=== PATIENT | female | born 1935 | race Caucasian/White ===

== ENCOUNTER 2020-01-14 23:26 | Inpatient (IN) | payer MEDICARE, OTHER ==
[~2020-01-14] VITALS: Ht 144.8 cm; Wt 57.6 kg
--- NOTE | 2020-01-14 23:42 | NUR ---
PT BIBRA 102 AND THE DTR FOR EVALUATION OF R KNEE PAIN AND SWELLING S/P GLF DENIED HITTING HER HEAD. - KO. PT AAOX3, RR EVEN AND UNLABORED W/ NAD NOTED. PT CONNECTED TO THE SALESPERSON FLYING SQUAD AND POX. LIDOCAINE PATCH NOTED. ADMINISTERED BY DTR @2230
[2020-01-15] MEDS ORDERED: ACETAMINOPHEN ES 500 MG TABLET ONE (00:24)
[2020-01-15] MEDS ORDERED: ACETAMINOPHEN ES 500 MG TABLET PO ONE (00:30)
--- NOTE | 2020-01-15 02:19 | NUR ---
M/S 309-2
--- NOTE | 2020-01-15 02:29 | NUR ---
ER MD SPOKE TO DR. EVERETT REGARDING PT ADMISSION.
[2020-01-15] MEDS ORDERED: MAG HYDROX/AL HYDROX/SIMETH 30 ML UDC PO PRN (02:30)
[2020-01-15] MEDS ORDERED: MAGNESIUM HYDROXIDE 30 ML UDC PO PRN (02:30)
[2020-01-15] MEDS ORDERED: ZOLPIDEM TARTRATE 5 MG TABLET PO PRN (02:30)
[2020-01-15] MEDS ORDERED: Z GUARD REMEDY 2 OZ OINT TP PRN (02:30)
[2020-01-15] MEDS ORDERED: ONDANSETRON HCL/PF 4 MG/2 ML VIAL IVP PRN (02:30)
[2020-01-15 03:12] LABS: BASOPHILS # (AUTO) 0.1 /CMM (0.0-0.2); BASOPHILS % (AUTO) 0.8 % (0.0-2.0); EOSINOPHILS % (AUTO) 1.9 % (0.0-6.0); HEMATOCRIT 38 % (33-45); HEMOGLOBIN 12.1 g/dL (11.5-14.8); LYMPHOCYTES # (AUTO) 0.5 /CMM (0.8-4.8); LYMPHOCYTES % (AUTO) 4.7 % (20.0-44.0); MEAN CORPUSCULAR HGB CONC 32 g/dl (31.0-36.0); MEAN CORPUSCULAR VOLUME 94 fL (82-100); MONOCYTES # (AUTO) 0.5 /CMM (0.1-1.30); MONOCYTES % (AUTO) 4.8 % (2.0-12.0); NEUTROPHILS # (AUTO) 8.5 /CMM (1.8-8.9); NEUTROPHILS % (AUTO) 87.8 % (43.0-81.0); PLATELET COUNT (AUTO) 204 /CMM (150-450); RED BLOOD CELL COUNT(AUTO) 4.01 MIL/uL (4.0-5.2); WHITE BLOOD COUNT (AUTO) 9.7 K/uL (4.3-11.0)
[2020-01-15] MEDS ORDERED: INSU100V42 (03:21)
[2020-01-15] MEDS ORDERED: POLY17PO4 PO (03:21)
[2020-01-15] MEDS ORDERED: ERGO1POW10 MC (03:21)
[2020-01-15] MEDS ORDERED: PROC-11 PO (03:22)
[2020-01-15 03:23] LABS: CALCIUM, SERUM 8.6 mg/dL (8.5-10.1); CARBON DIOXIDE 36 mmol/L (21-32); CHLORIDE 96 mmol/L (98-107); CREATININE 3.7 mg/dL (0.6-1.3); GLUCOSE 209 mg/dL (74-106); POTASSIUM 3.6 mmol/L (3.5-5.1); SODIUM SERUM 137 mmol/L (136-145); UREA NITROGEN, BLOOD 28 mg/dL (7-18)
[2020-01-15] MEDS ORDERED: AMIO200T4 PO (03:23)
[2020-01-15 03:28] LABS: ALANINE AMINOTRANSFERASE 30 U/L (12-78); ALKALINE PHOSPHATASE 248 U/L (46-116); ASPARTATE AMINOTRANSFERASE 27 U/L (15-37); BILIRUBIN,DIRECT 0.2 mg/dL (0.0-0.2); BILIRUBIN,TOTAL 0.5 mg/dL (0.2-1.0); TOTAL PROTEIN, SERUM 6.9 g/dL (6.4-8.2)
[2020-01-15] MEDS ORDERED: ATOR80TA PO (03:29)
[2020-01-15] MEDS ORDERED: AMLO2.5T4 PO (03:29)
[2020-01-15] MEDS ORDERED: FOLI0.8T2 PO (03:29)
[2020-01-15] MEDS ORDERED: APIX2.5T PO (03:29)
[2020-01-15] MEDS ORDERED: INSU300I SQ (03:31)
--- NOTE | 2020-01-15 03:34 | NUR ---
REPORT GIVEN TO BETHEL JOHNSON
--- NOTE | 2020-01-15 03:43 | NUR ---
PT TRANSFERRED TO [facility]-2 IN STABLE CONDITION
--- NOTE | 2020-01-15 04:27 | NUR ---
RN ADMITTING NOTES RECEIVED REPORT FROM [employer] ATTENDANTBETHEL LAWRENCE. Pt ARRIVED TO THE FLOOR VIA ER DAVID, WAS TRANSFERRED TO ROOM BED 309-2 BY ER STAFF, WAS TRANSFERRED TO BED SAFELY. Pt IS A/OX2-3, VERY FORGETFUL AND POOR HISTORIAN. PER REPORT DAUGHTER CAME WITH Pt TO THE ER, BUT DID NOT COME UP TO THE FLOOR WITH DAUGHTER WHEN Pt WAS BEING ADMITTED TO HOSPITAL. Pt IS VERBAL AND ABLE TO MAKE NEEDS KNOWN, BUT IS HARD OF HEARING ON THE BOTH EARS. PER Pt STATEMENT LEFT EAR IS BETTER BUT MUST SPEAK LOUD AND CLOSE FOR Pt TO HEAR WELL. IV ACCESS ON R HAND #22G, SL. SKIN IS INTACT. NO S/S OF ACUTE DISTRESS OR SOB NOTED. SAFETY MEASURES IN PLACE. BED LOW, LOCKED, HOB ELEVATED, SIDE RAILS UP, CALL LIGHT AND BEDSIDE TABLE WITHIN REACH. WILL CONTINUE TO MONITOR Pt's CONDITION AND SAFETY THROUGHOUT THE NIGHT.
[2020-01-15 04:33] VITALS: BP 154/63
[2020-01-15] MEDS: HYDROCODONE/APAP 5/325MG 1 EACH TABLET PO PRN ×2 (04:45→11:54)
[2020-01-15] MEDS ORDERED: DEXTROSE 50%-WATER 50 ML DISP.SYRIN IV PRN (05:00)
[2020-01-15] MEDS: BLOOD SUGAR DIAGNOSTIC 1 EACH STRIP IN SCH ×5 (07:04→21:30)
[2020-01-15] MEDS ORDERED: INSULIN LISPRO/ASPART 100 UNIT/ML CARTRIDGE SQ SCH (07:30)
[2020-01-15] MEDS ORDERED: POLYETHYLENE GLYCOL 3350 17 GM POWD.PACK PO PRN (07:30)
--- NOTE | 2020-01-15 07:30 | NUR ---
RECEIVED PT. THIS AM ALERT AND ORIENTED X2.PARA EDUCATOR DAYRON DEVLIN.
[2020-01-15 08:00] VITALS: BP 152/57
--- NOTE | 2020-01-15 08:28 | NUR ---
RN CLOSING NOTES NO SIGNIFICANT CHANGES IN Pt's CONDITION. Pt IS RESTING COMFORTABLY IN BED. NO S/S OF ACUTE DISTRESS OR SOB NOTED. ALL NEEDS MET AND ATTENDED TO. SAFETY MEASURES IN PLACE. ENDORSED TO DAYSHIFT RN FOR Pt's GOPAL.
[2020-01-15] MEDS: PROCHLORPERAZINE MALEATE 10 MG TABLET PO SCH (08:57)
[2020-01-15] MEDS: AMIODARONE HCL 200 MG TABLET PO SCH ×2 (10:49→18:17)
[2020-01-15] MEDS: VIT B CMPLX 3/FA/VIT C/BIOTIN 1 TAB TABLET PO SCH (10:49)
[2020-01-15] MEDS: AMLODIPINE BESYLATE 2.5 MG TABLET PO SCH (10:50)
[2020-01-15] MEDS: APIXABAN 2.5 MG TABLET PO SCH ×2 (12:53→18:18)
[2020-01-15 16:00] VITALS: BP 152/60
[2020-01-15] MEDS: ACETAMINOPHEN 325 MG TABLET PO PRN ×2 (17:00→20:54)
--- NOTE | 2020-01-15 18:00 | NUR ---
MED. X2 FOR PAIN RT. LEG,UP WITH PHYSICAL TX. FREQ. CALLING NURSED AND FORGETFUL.RELOCATED TO RM. 310-1.
[2020-01-15 20:00] VITALS: BP 139/62
[2020-01-15 20:35] VITALS: BP 134/62
[2020-01-15] MEDS: ATORVASTATIN 40 MG TABLET PO SCH (21:32)
[2020-01-15] MEDS: INSULIN GLARGINE, 100 UNIT/ML CARTRIDGE SQ SCH (21:39)
--- NOTE | 2020-01-15 21:56 | NUR ---
Recieved patient in the bed. She has a immobilzor on and the legs is up on 1 pillow, PPP and the foot is warm. She is [place] and will repeat questions frequently. She swallows water w/o problem aspiration precautions. Blood suagr was 217, I called Ivana the daughter and told her, she stated give NO Insulin and please check the blood sugar at 3AM.
[2020-01-16] MEDS: ACETAMINOPHEN 325 MG TABLET PO PRN ×2 (02:35→06:23)
--- NOTE | 2020-01-16 05:18 | NUR ---
ENDING NOTES: awake thru the night, c/o her right leg hurts. Medicated with tylenol X2 for the pain and not effective. She yells out for her daughters, explained to her it was night, she states"okay" but forgets right away. Incontinent urine. Blood sugar last night at HS was 217, Daughter Ivana has a note on the wall above the bed NO INSULIN AT NIGHT, I called the daughter and spoke to Ivana told her the sugar and stated she should have the long acting insulin at least, she stated she didn't want her Mom to have any insulin because she drops low. She also commented not to give her MOM any [place] thru the night to give her 1 when PT starts to work with her. Her Mom has on a immobilizer right legs elevated 1 pillow PPP and foot warm
[2020-01-16] MEDS: INSULIN REGULAR, HUMAN 100 UNIT/ML 3 ML VIAL SQ PRN ×3 (06:28→17:39)
[2020-01-16] MEDS: INSULIN GLARGINE, 100 UNIT/ML CARTRIDGE SQ SCH ×2 (06:39→21:58)
--- NOTE | 2020-01-16 07:15 | NUR ---
MS RN NOTES PATIENT IN BED ALERT ORIENTED X 2. NO ACUTE DISTRESS NOTED, BREATHING UNLABORED. NO SOB NOTED. IV ACCESS PATENT AND INTACT, NO REDNESS OR SWELLING NOTED. SAFETY MEASURES IN PLACE. CALL LIGHT WITHIN REACH. WILL CONTINUE TO MONITOR ACCORDINGLY.
[2020-01-16 07:18] LABS: BASOPHILS # (AUTO) 0.1 /CMM (0.0-0.2); BASOPHILS % (AUTO) 1.5 % (0.0-2.0); EOSINOPHILS % (AUTO) 0.6 % (0.0-6.0); HEMATOCRIT 34 % (33-45); HEMOGLOBIN 11.1 g/dL (11.5-14.8); LYMPHOCYTES # (AUTO) 0.4 /CMM (0.8-4.8); LYMPHOCYTES % (AUTO) 5.3 % (20.0-44.0); MEAN CORPUSCULAR HGB CONC 32 g/dl (31.0-36.0); MEAN CORPUSCULAR VOLUME 95 fL (82-100); MONOCYTES # (AUTO) 0.4 /CMM (0.1-1.30); MONOCYTES % (AUTO) 6.2 % (2.0-12.0); NEUTROPHILS # (AUTO) 6.1 /CMM (1.8-8.9); NEUTROPHILS % (AUTO) 86.4 % (43.0-81.0); PLATELET COUNT (AUTO) 168 /CMM (150-450); RED BLOOD CELL COUNT(AUTO) 3.62 MIL/uL (4.0-5.2)
[2020-01-16 07:50] LABS: CALCIUM, SERUM 8.8 mg/dL (8.5-10.1); CARBON DIOXIDE 28 mmol/L (21-32); CHLORIDE 94 mmol/L (98-107); CREATININE 4.9 mg/dL (0.6-1.3); GLUCOSE 304 mg/dL (74-106); MAGNESIUM 2.1 mg/dL (1.8-2.4); POTASSIUM 4.5 mmol/L (3.5-5.1); SODIUM SERUM 133 mmol/L (136-145); UREA NITROGEN, BLOOD 40 mg/dL (7-18)
[2020-01-16 07:57] LABS: CHOLESTEROL 143 mg/dL (<200); HDL CHOLESTEROL 67 mg/dL (40-60); LDL 56 mg/dL (0-99); THYROID STIMULATING HORMONE 7.826 uIU/mL (0.358-3.74); TRIGLYCERIDES 97 mg/dL (30-150)
[2020-01-16 08:00] VITALS: BP 154/88
[2020-01-16] MEDS: AMIODARONE HCL 200 MG TABLET PO SCH ×2 (09:21→17:00)
[2020-01-16] MEDS: LEVOTHYROXINE SODIUM 25 MCG TABLET PO SCH (09:21)
[2020-01-16] MEDS: VIT B CMPLX 3/FA/VIT C/BIOTIN 1 TAB TABLET PO SCH (09:22)
[2020-01-16] MEDS: AMLODIPINE BESYLATE 2.5 MG TABLET PO SCH (09:22)
[2020-01-16] MEDS: PROCHLORPERAZINE MALEATE 10 MG TABLET PO SCH (09:22)
[2020-01-16] MEDS: APIXABAN 2.5 MG TABLET PO SCH ×2 (09:23→18:26)
[2020-01-16] MEDS: BLOOD SUGAR DIAGNOSTIC 1 EACH STRIP IN SCH ×3 (12:06→21:58)
[2020-01-16 16:00] VITALS: BP 162/90
--- NOTE | 2020-01-16 17:00 | NUR ---
MS RN NOTES PATIENT ON DIALYSIS HELD MEDICATION.
--- NOTE | 2020-01-16 18:10 | NUR ---
MS RN NOTES PATIENT HAD DIALYSIS, VITAL SIGNS STABLE, 500ML OUT.
--- NOTE | 2020-01-16 18:20 | NUR ---
MS RN NOTES ELIQUIS GIVEN AFTER DIALYSIS
--- NOTE | 2020-01-16 18:40 | NUR ---
MS RN NOTES PATIENT IN BED ALERT ORIENTED X 2. NO ACUTE DISTRESS NOTED, BREATHING UNLABORED. NO SOB NOTED. IV ACCESS PATENT AND INTACT, NO REDNESS OR SWELLING NOTED.NEEDS ATTENDED AND ANTICIPATED. SAFETY MEASURES IN PLACE. CALL LIGHT WITHIN REACH. WILL ENDORSE TO NIGHT NURSE FOR CONTINUITY OF CARE.
--- NOTE | 2020-01-16 19:00 | NUR ---
MS RN NOTE RECEIVED PT IN STABLE CONDITION A/O X2, NOTED IN BED. NO SIGNS OF SOB OR DISTRESS, NO C/O PAIN OR N/V. IV IN R HAND #[address] S/L. ALL CURRENT NEEDS ATTENDED TO. BED LOW, LOCKED, UPPER RAILS UP, AND CALL LIGHT WITHIN REACH. WILL CONT. TO MONITOR.
[2020-01-16 20:00] VITALS: BP 154/110
[2020-01-16] MEDS: ATORVASTATIN 40 MG TABLET PO SCH (21:29)
--- NOTE | 2020-01-16 21:58 | NUR ---
MS RN NOTE PT NOTED WITH BLOOD SUGAR OF 221, PT DAUGHTER EFFIE CALLED AND NOTIFIED. DAUGHTER REFUSING REGULAR INSULIN COVERAGE, AND PM DOSE OF LANTUS 10 UNIT. STATING THAT PT SUGAR ALWAYS DROPS. RISKS AND BENEFITS MADE AWARE. WILL CONT. TO MONITOR.
--- NOTE | 2020-01-17 02:28 | NUR ---
MS RN NOTE BLOOD SUGAR CHECKED PER DAUGHTER REQUEST, NOTED WITH BLOOD SUGAR OF 217, PER EFFIE DAUGHTER, NO INSULIN SHOULD BE GIVEN. RISKS AND BENEFITS MADE AWARE WITH VERBALIZATION OF UNDERSTANDING. WILL CONT. TO MONITOR.
--- NOTE | 2020-01-17 03:50 | NUR ---
MS RN NOTE CALLED EFFIE (DAUGHTER) TO INFORM HER OF PT'S PAIN. PER DAUGHTER, ONLY TYLENOL MAY BE GIVEN. WILL ADMINISTER.
[2020-01-17] MEDS: ACETAMINOPHEN 325 MG TABLET PO PRN ×2 (04:06→14:22)
--- NOTE | 2020-01-17 06:10 | NUR ---
MS RN NOTE PT NOTED WITH AM BLOOD SUGAR OF 217, EFFIE DAUGHTER CALLED, PER DAUGHTER, NO INSULIN TO BE GIVEN. RISKS AND BENEFITS MADE AWARE WITH VERBALIZATION OF UNDERSTANDING. WILL CONT. TO MONITOR.
--- NOTE | 2020-01-17 06:11 | NUR ---
MS RN NOTE PT REMAINS IN STABLE CONDITION, SLEEPING IN BED. NO SIGNS OF SOB OR DISTRESS, NO C/O PAIN OR N/V. IV IN R HAND #[address] S/L. ALL CURRENT NEEDS ATTENDED TO. BED LOW, LOCKED, UPPER RAILS UP, AND CALL LIGHT WITHIN REACH. WILL CONT. TO MONITOR AND ENDORSE TO NEXT SHIFT FOR GOPAL.
[2020-01-17] MEDS: BLOOD SUGAR DIAGNOSTIC 1 EACH STRIP IN SCH ×2 (06:30→12:22)
[2020-01-17 08:00] VITALS: BP 165/62
[2020-01-17] MEDS: LEVOTHYROXINE SODIUM 25 MCG TABLET PO SCH (08:20)
[2020-01-17] MEDS: INSULIN GLARGINE, 100 UNIT/ML CARTRIDGE SQ SCH (08:22)
--- NOTE | 2020-01-17 08:22 | NUR ---
MS RN NOTES DAUGHTER EFFIE SAID OK TO GIVE LANTUS TO PATIENT.
[2020-01-17] MEDS: PROCHLORPERAZINE MALEATE 10 MG TABLET PO SCH (08:51)
[2020-01-17] MEDS: VIT B CMPLX 3/FA/VIT C/BIOTIN 1 TAB TABLET PO SCH (08:51)
[2020-01-17] MEDS: APIXABAN 2.5 MG TABLET PO SCH (08:51)
[2020-01-17 08:53] VITALS: BP 158/63
[2020-01-17] MEDS: AMLODIPINE BESYLATE 2.5 MG TABLET PO SCH (08:53)
[2020-01-17] MEDS: AMIODARONE HCL 200 MG TABLET PO SCH (08:53)
[2020-01-17] MEDS: INSULIN REGULAR, HUMAN 100 UNIT/ML 3 ML VIAL SQ PRN (12:22)
--- NOTE | 2020-01-17 12:22 | NUR ---
MS RN NOTES PATIENT AND DAUGHTER EFFIE REFUSED INSULIN ADMINISTRATION DESPITE OF EXPLANATION OF RISKS AND BENEFITS.
--- NOTE | 2020-01-17 15:10 | NUR ---
MS LEVELER HELPER NOTES PATIENT DISCHARGE HOME WITH DAUGHTER EFFIE WITH STABLE VITAL SIGNS. NO ACUTE DISTRESS NOTED, BREATHING UNLABORED, NO SOB NOTED. IV ACCESS REMOVED, NO BLEEDING, NO REDNESS, NO SWELLING NOTED. LEFT ARM DIALYSIS ACCESS WITH DRESSING CLEAN DRY AND INTACT. RIGHT KNEE IMMOBILIZER IN PLACE. DISCHARGE INSTRUCTIONS GIVEN TO THE DAUGHTER EFFIE, VERBALIZED UNDERSTANDING. ALL BELONGINGS ACCOUNTED FOR. ASSISTED TO THE LOBBY, PICKED UP VIA PRIVATE CAR ACCOMPANIED BY DAUGHTER IN STABLE CONDITION.
[2020-01-19] MEDS ORDERED: ERGOCALCIFEROL (VITAMIN D 2) 50,000 UNIT CAPSULE PO SCH (09:00)
== END 2020-01-17 15:10 | disposition home health service (06) | DRG 562 ==
LOC: ER 23:27 → MED 01-15 02:28
PROVIDERS: ADMIT Internal Medicine; ATTEND Internal Medicine
PROC: 5A1D70Z Performance of Urinary Filtration, Intermittent, Less than 6 Hours Per Day (ICD-10-PCS; principal; 2020-01-16)
DX: S83.91XA Sprain of unspecified site of right knee, initial encounter (principal); N18.6 End stage renal disease; I12.0 Hypertensive chronic kidney disease with stage 5 chronic kidney disease or end stage renal disease; W05.0XXA Fall from non-moving wheelchair, initial encounter; Y92.009 Unspecified place in unspecified non-institutional (private) residence as the place of occurrence of the external cause; Z99.2 Dependence on renal dialysis; E11.22 Type 2 diabetes mellitus with diabetic chronic kidney disease; I25.10 Atherosclerotic heart disease of native coronary artery without angina pectoris; H91.90 Unspecified hearing loss, unspecified ear; I48.91 Unspecified atrial fibrillation; Z88.8 Allergy status to other drugs, medicaments and biological substances; M19.90 Unspecified osteoarthritis, unspecified site; Z95.5 Presence of coronary angioplasty implant and graft; Z79.4 Long term (current) use of insulin; Z79.01 Long term (current) use of anticoagulants
CPT/HCPCS: 36415; 73564-TC; 80048-TC; 80061-TC; 80076-TC; 82962-TC; 83735-TC; 84100-TC; 84443-TC; 85025-TC; 85730-TC; 86706; 87081-TC; 87340; 90935-TC; 97110-TC; 97112-TC; 97530-TC; G0378; J1815; Q0164